=== PATIENT | male | born 1990 | race Caucasian/White ===

== ENCOUNTER 2016-04-09 06:25 | Emergency (ER) | payer SELFPAY ==
[~2016-04-09] VITALS: Ht 175.3 cm; Wt 85.7 kg
[2016-04-09 07:01] LABS: MCH 30.3 PG (29.0-34.0); MCHC 34.7 G/DL (30.0-36.0); MCV 87.4 FL (86-99); MEAN PLAT.VOLUME 10.2 uM^3 (9.0-12.4); PLATELET COUNT 212 K/uL (156-360); RBC DIS.WIDTH-CV 12.6 % (11.8-14.6); RBC DIS.WIDTH-SD 39.5 % (39-53); RED BLOOD COUNT 4.92 M/uL (4.00-5.50); WHITE BLOOD COUNT 8.1 K/uL (4.1-10.2)
[2016-04-09 07:09] LABS: CHLORIDE 105 mEq/L (99-109)
[2016-04-09 07:10] LABS: POTASSIUM 3.7 mEq/L (3.7-5.4); SODIUM 138 mEq/L (136-147)
[2016-04-09 07:12] LABS: GLUCOSE 117 mg/dL (70-99)
[2016-04-09 07:13] LABS: ANION GAP 11 MEQ/L (2-14)
[2016-04-09 07:14] LABS: TOTAL BILIRUBIN 0.8 mg/dL (0.0-1.0)
[2016-04-09 07:15] LABS: ALKALINE PHOSPHATASE 83 IU/L (3-129)
[2016-04-09 07:17] LABS: UREA NITROGEN (BUN) 19 mg/dL (9-23)
[2016-04-09 07:21] LABS: GFR ESTIMATE (CALCULATED) > 59 mL/min/
[2016-04-09 08:49] LABS: ADD MIUA? NO; BILIRUBIN NEGATIVE; BLOOD NEGATIVE; COLOR YELLOW ((YELLOW)); GLUCOSE (STRIP) NEGATIVE; KETONES NEGATIVE; LEUKOCYTES NEGATIVE; NITRITE NEGATIVE; PH, URINE 7.5 (5-8); PROTEIN (STRIP) TRACE; SPECIFIC GRAVITY 1.028 (1.000-1.030); UCUL ADDED? NO
[2016-04-09 08:51] LABS: INFLUENZA A VIRAL ANTIGEN NEGATIVE; INFLUENZA B VIRAL ANTIGEN NEGATIVE
[2016-04-09] MEDS ORDERED: MOTRIN800 MG PO (11:09)
[2016-04-09 12:29] VITALS: BP 119/76
== END 2016-04-09 12:31 | disposition home or self-care (01) ==
LOC: EME 06:25
PROVIDERS: Emergency Medicine
DX: B34.9 Viral infection, unspecified (principal); R10.9 Unspecified abdominal pain; Z88.0 Allergy status to penicillin
CPT/HCPCS: 71010; 74176; 80053; 81003; 85027; 87502; 99281; 99285; J3010; J7030

== ENCOUNTER 2016-05-01 06:49 | Emergency (ER) | payer SELFPAY ==
[~2016-05-01] VITALS: Ht 175.3 cm; Wt 88.2 kg
[~2016-05-01 06:49] MED LIST: MOTRIN800 MG PO
[2016-05-01] MEDS ORDERED: TYLENOL REGULA325 MG PO (07:57)
[2016-05-01 09:00] VITALS: BP 126/82
== END 2016-05-01 09:10 | disposition home or self-care (01) ==
LOC: EME 06:49
DX: S13.4XXA Sprain of ligaments of cervical spine, initial encounter (principal); S00.81XA Abrasion of other part of head, initial encounter; S30.810A Abrasion of lower back and pelvis, initial encounter; S00.83XA Contusion of other part of head, initial encounter; W54.1XXA Struck by dog, initial encounter; W10.9XXA Fall (on) (from) unspecified stairs and steps, initial encounter; Z88.1 Allergy status to other antibiotic agents; Z88.0 Allergy status to penicillin
CPT/HCPCS: 70450; 99281; 99284